=== PATIENT | female | born 1985 | race American Indian/Alaskan Native ===

== ENCOUNTER 2018-12-23 18:12 | Emergency (ER) | payer MEDICAID ==
--- NOTE | 2018-12-23 18:24 | Emergency Department Report ---
Blank Doc - Documentation Documentation: This is a 33-year-old female that presents with bilateral hands tingling and n umbness sensation. This initial assessment/diagnostic orders/clinical plan/treatment(s) is/are subject to change based on patient's health status, clinical progression and re- assessment by fellow clinical providers in the ED. Further treatment and workup at subsequent clinical providers discretion. Patient/guardians urged not to elope from the ED as their condition may be serious if not clinically assessed and managed. Initial orders include: 1- Patient sent to [facility] for further evaluation and treatment 2- labs
[2018-12-23 18:26] VITALS: BP 103/69
[2018-12-23 19:36] LABS: Bilirubin,Urine NEG (Negative); Blood,Urine MOD (Negative); Color,Urine Yellow (Yellow); Mucus,Urine FEW /HPF; Protein,Urine <15 mg/dL mg/dL (Negative); Urobilinogen,Urine < 2.0 mg/dL (<2.0)
== END 2018-12-23 21:32 | disposition left against medical advice (07) ==
LOC: ED 18:12
DX: R20.2 Paresthesia of skin (principal)
CPT/HCPCS: 81001; 99283

== ENCOUNTER 2019-07-29 16:35 | Emergency (ER) | payer MEDICAID ==
[2019-07-29] MEDS ORDERED: IBUPROFEN 600 MG TAB PO ONE (17:20)
--- NOTE | 2019-07-29 17:20 | Event Note ---
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
--- NOTE | 2019-07-29 17:23 | Emergency Department Report ---
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 may use ice pack for 15 minutes at a time, may use heating pad 15 minutes at a time, rest. may use a wrist wrap over the counter while doing activities, do not wear while not doing activities. follow up with an orthopedic doctor. return to the emergency room for any new or worsening symptoms. Medical screening examination performed and there is no threat to life or limb at this time Discussed symptomatic treatment with patient Patient received the appropriate resources Discussed strict return precautions with patient MSE screening note: Focused history and physical exam performed. ED Disposition for MSE Clinical Impression: Left wrist pain, Left hand pain Disposition: Z-07 MED SCREENING EXAM-LEFT Is pt being admited?: No Does the pt Need Aspirin: No Condition: Stable Instructions: Carpal Tunnel Syndrome (ED) Additional Instructions: may alternate tylenol or ibuprofen as needed for pain. may use ice pack for 15 minutes at a time, may use heating pad 15 minutes at a time, rest. may use a wrist wrap over the counter while doing activities, do not wear while not doing activities. follow up with an orthopedic doctor. return to the emergency room for any new or worsening symptoms. Referrals: CORIN MCCLENDON MD [Staff Physician] - 2-3 Days [facility] [Provider Group] - 2-3 Days Time of Disposition: 17:21 Print Language: CAMBODIAN
[2019-07-30 00:50] VITALS: BP 101/68
== END 2019-07-29 18:00 | disposition left against medical advice (07) ==
LOC: ED 16:35
DX: M25.542 Pain in joints of left hand (principal); M25.532 Pain in left wrist
CPT/HCPCS: 99281